=== PATIENT | female | born 1985 | race Asian ===

== ENCOUNTER 2019-03-21 11:42 | Emergency (ER) | payer OTHER ==
[~2019-03-21] VITALS: Ht 177.8 cm; Wt 61.7 kg
[2019-03-21 11:44] VITALS: Ht 177.8 cm; Wt 61.7 kg
[2019-03-21 12:50] LABS: BASOPHIL % 0.4 % (0-2); PLATELET COUNT 182 x10^3mcL (130-400)
[2019-03-21 13:55] VITALS: BP 111/50
== END 2019-03-21 14:24 | disposition home or self-care (01) ==
LOC: ED 11:42
PROVIDERS: Emergency Medicine
DX: R10.2 Pelvic and perineal pain (principal)
CPT/HCPCS: 36415

== ENCOUNTER 2019-03-23 10:45 | Emergency (ER) | payer OTHER ==
[~2019-03-23] VITALS: Ht 177.8 cm; Wt 60.8 kg
[2019-03-23 10:54] VITALS: BP 96/57; Ht 177.8 cm; Wt 60.8 kg
== END 2019-03-23 13:36 | disposition home or self-care (01) ==
LOC: ED 10:45
DX: Z32.01 Encounter for pregnancy test, result positive (principal)
CPT/HCPCS: 36415

== ENCOUNTER 2020-10-20 13:51 | Emergency (ER) | payer OTHER ==
[~2020-10-20] VITALS: Ht 177.8 cm; Wt 62.6 kg
[2020-10-20 13:56] VITALS: Ht 177.8 cm; Wt 62.6 kg
[2020-10-20 15:56] LABS: BASOPHIL % 0.1 % (0-2); PLATELET COUNT 169 x10^3mcL (130-400); RED CELL DISTRIBUTION WIDTH 13.3 % (11.5-14.5)
[2020-10-20 16:12] LABS: CALCIUM 8.1 mg/dL (8.5-10.1); CARBON DIOXIDE 24.4 mmol/L (21-32); CHLORIDE SERUM 102 mmol/L (98-107); CREATININE SERUM 0.5 mg/dL (0.6-1.0); GFR1 > 60 mL/min; GLUCOSE SERUM 80 mg/dL (74-106); SODIUM SERUM 135 mmol/L (136-145)
[2020-10-20 16:14] LABS: POTASSIUM SERUM 2.9 mmol/L (3.5-5.1)
[2020-10-20 17:48] VITALS: BP 97/38
== END 2020-10-20 15:25 | disposition home or self-care (01) ==
LOC: ED 13:51
PROVIDERS: Emergency Medicine
DX: O26.892 Other specified pregnancy related conditions, second trimester (principal); E87.6 Hypokalemia; R10.2 Pelvic and perineal pain; Z3A.15 15 weeks gestation of pregnancy